=== PATIENT | female | born 1965 | race Caucasian/White ===

== ENCOUNTER → 2019-04-04 15:19 | Outpatient (CLI) | payer OTHER, SELFPAY ==
[2019-04-04 16:42] LABS: Progesterone, Total 0.33 ng/mL
[2019-04-04 16:57] LABS: Estradiol, Total 19.2 pg/mL
== END ==
PROVIDERS: PCP Physician Assistant; Visit Provider Obstetrics & Gynecology
DX: N93.9 Abnormal uterine and vaginal bleeding, unspecified (principal)
CPT/HCPCS: 36415; 82670; 83001; 84144

== ENCOUNTER 2019-05-18 09:23 | Day surgery (SDC) | payer OTHER, SELFPAY ==
[2019-05-15 10:55] VITALS: BMI 27.6
[2019-05-18] VITALS (10 sets, daily range): BP systolic 119–140; BP diastolic 58–80; PULSE 70–80; RESP 10–20; TEMP 36.1–37.1; O2SAT 96–99; BMI 27.6
--- NOTE | 2019-05-18 | PATH_ITS ---
[facility] Accession Number: [id number] . 01 Material submitted: . endometrium - ENDOMETRIAL CURETTINGS . 01 Clinical history: . PELVIC . 02 Diagnosis: Endometrial Curettings: Portions of disordered proliferative endometrium; negative for glandular hyperplasia, cytologic atypia, and malignancy. Occasional tissue fragments demonstrate prominent vessels, suggestive of polyp, if clinical and imaging findings are concordant. . BFI 05/19/2019 1623 Local . 02 Electronically signed: . Randi España MD, Pathologist NPI- [id number] . 01 Gross description: . ENDOMETRIAL CURETTINGS: Received in formalin are minute fragments of mucoid and hemorrhagic material measuring 2.0 x 1.5 x 0.2 cm in aggregate. Submitted in toto in 1 cassette. /QBJ 05/19/2019 0035 Local . 02 Pathologist provided ICD-10: N84.0, N93.9 . 02 CPT . 399512 Performed at: 01 [facility] [address], [place], [place] [id number] MD Yoandy Hawkins MD Phone: [phone] Performed at: 02 [facility] [address] [place], [place] [id number] MD Grace Mondragon MD Phone: [phone]
[2019-05-18] MEDS: LACTATED RINGERS 1,000 ML 42 ML IV (09:57)
--- NOTE | 2019-05-18 10:11 | SUR.OPER ---
Lithotomy on padded OR bed, head on pillow, arms secured on padded arm boards at <90 degrees abduction. Legs secured in padded yellow fins stirrups.
--- NOTE | 2019-05-18 10:40 | PM.GYNOP.1 ---
Operative Date/Time/Diagnoses Date of procedure: 05/18/19 Time of procedure: 12:45 Pre-op diagnosis: Menorrhagia Thickened endometrial lining Post-op diagnosis: same Procedure & Clinicians Procedure: Procedures Operation Date: 05/18/19 10:45 Actual Procedures Side Surgeon p Hysteroscopy D&C, polypectomy w/ novasure Ablation Araseli Teixeira MD Indications: Menorrhagia Thickened endometrial lining Surgeon: Araseli Teixeira Anesthesia Type: General (LMA) Operative Notes Findings: Length of the uterus 5 cm. With of the uterus 4 cm. Time 53 seconds. Power 116 w. Both fallopian tube ostia observed Closure Type: not applicable Specimen(s): endometrial curettings Estimated blood loss (mL): 10 Blood products transfused: none Procedure in detail: After informed consent was obtained, the patient was taken to the operating room where she was placed in the dorsal supine position. After adequate LMA general anesthesia was achieved, she was placed in the dorsal lithotomy position, and prepped and draped in the usual sterile fashion. A time-out was performed. A bivalve speculum was placed into the vagina and the anterior lip of the cervix grasped with a single-tooth tenaculum. Cervical os was sequentially dilated until the hysteroscope could pass easily into the endometrial cavity. Initial inspection with the hysteroscope revealed both fallopian tube ostia. The hysteroscope was removed. Sharp curettage was performed yielding moderate amount of endometrial curettings. Uterus was measured from the internal os to the fundus and measured 5 cm. This was set on the NovaSure catheter and the generator. The catheter passed easily into the endometrial cavity and was opened. The width of the uterus was 4 cm. This indicated a power of 116 w. Cervix was capped, the cavity assessment was performed and passed. Cycle was initiated and lasted 53 seconds. At the completion of the cycle the cervix was then capped, the NovaSure catheter was closed and removed from the uterus. Single-tooth tenaculum was removed from the anterior lip of the cervix. The bivalve speculum was removed from the vagina. Sponge, lap, and instrument counts were correct x2. The patient tolerated the procedure well, and was taken to PACU in stable condition. Complications: none Post-operative Condition: stable Disposition: PACU Plan for aftercare: Home after recovery
--- NOTE | 2019-05-18 10:40 | PM.HP.1 ---
History of Present Illness History of Present Illness Date Patient Seen: 05/18/19 Time Patient Seen: 10:40 Chief complaint: [id number] PELVIC Narrative: Patient is a 54-year-old 3 para 1 who presents for a D&C hysteroscopy, possible polypectomy, and NovaSure endometrial ablation This was due to menorrhagia and a 17 mm endometrial lining. She was unable to tolerate an endometrial biopsy in the office. Patient History Medical History (Updated 05/15/19 @ 10:59 by Destiny Hoffman RN) Chicken pox (Resolved ~1969) Hearing loss (Chronic ~2011) Heavy menstrual period (Chronic ~2017) History of hysteroscopy (Acute) Irregular menstrual cycle (Chronic ~2017) Irritable bowel syndrome (Chronic ~1989) Ovarian cyst (Chronic ~2017) Shoulder pain (Chronic ~2018) Skin cancer (Resolved ~2018) Surgical History (Updated 04/05/19 @ 20:02 by Kalyn Carranza) Anesthesia (Resolved) Cholesteatoma (Resolved) Ectopic (Resolved ~1986) History of tonsillectomy (Resolved ~1970) Status post biopsy of uterine cervix (Resolved ~2018) Family & Social History Family History (Updated 04/05/19 @ 20:05 by Kalyn Carranza) Father Hypertension Hyperlipidemia Mother CLL (chronic lymphocytic leukemia) Cancer Stroke Brother Addiction Brother Cancer Social History: household members spouse Tobacco & Substance use: Smoking Status Former smoker Meds Home Medications and Allergies Home Medications Medication Instructions Recorded Confirmed Type alprazolam 0.25 mg tablet 0.25 mg PO BEDTIME PRN 04/04/19 05/18/19 History multivitamin 1 cap PO DAILY 04/04/19 05/18/19 History Allergies Allergy/AdvReac Type Severity Reaction Status Date / Time Epidural AdvReac Uncoded 05/18/19 09:57 Exam Vital Signs (past 8 hours): - 05/18/19 09:51 Temperature 97.3 F L Pulse Rate 78 Respiratory Rate 16 Blood Pressure 121/73 Pulse Oximetry 98 Oxygen Delivery Method Room Air Narrative Exam Narrative: HEENT: No thyromegaly, no anterior cervical or supraclavicular lymphadenopathy. Lungs:Clear to auscultation bilaterally, no wheezes. Cardiovascular: Regular rate and rhythm, no murmurs, rubs, or gallops. Abdomen: No scars. No hepatosplenomegaly. No masses palpable. External genitalia: Normal Vagina: Normal Cervix: Normal Bimanual exam: 8 Week size uterus. Mobile. Rectal: No masses. Ultrasound: 17.41 mm endometrial lining. Posterior intramural fibroid. Assessment & Plan Assessment & Plan narrative: Assessment: 54-year-old 3 para 1 with menorrhagia and a 17 mm endometrial lining Unable to tolerate endometrial biopsy in the office Plan: D&C hysteroscopy with possible resection of fibroid or polyp NovaSure endometrial ablation The risks, benefits, and alternatives to the procedure were explained to the patient. The risks including bleeding, infection, and uterine perforation. She understands these risks and agrees to proceed. A full par Q was held and consent form was signed. Time Spent With Patient Time with patient: 15-24 minutes
--- NOTE | 2019-05-18 10:44 | PM.PREOP ---
Pre-operative Note Interval Note History & Physical reviewed/Exam performed by Physician: Yes Changes to H&P: No
[2019-05-18] MEDS: OXYCODONE/ACETAMINOPHEN 5/325 TABLET 1 TAB PO (11:35)
--- NOTE | 2019-05-18 11:41 | SUR.PHASEI ---
Gave po oxycodone for c/o pain.
== END 2019-05-18 12:25 | disposition home or self-care (01) ==
PROVIDERS: Family Provider Physician Assistant; PCP Physician Assistant; Visit Provider Obstetrics & Gynecology
PROC: 0U5B8ZZ Destruction of Endometrium, Via Natural or Artificial Opening Endoscopic (ICD-10-PCS; CPT 58563; principal; 2019-05-18 10:45)
DX: N84.0 Polyp of corpus uteri (principal)
CPT/HCPCS: 58563; J1100; J1885; J2405; J2704; J3010